=== PATIENT | female | born 1955 | race Caucasian/White ===

== ENCOUNTER 2016-11-07 12:54 | Outpatient (CLI) | payer OTHER | END 2016-11-07 12:55 | disposition home or self-care (01) | DX: I10 Essential (primary) hypertension (principal); I51.7 Cardiomegaly ==

== ENCOUNTER 2016-12-07 09:23 | Outpatient (CLI) | payer OTHER ==
[2016-12-07 12:57] VITALS: BP 138/90
--- NOTE | 2016-12-07 13:33 | CARDIAC PROCEDURE NOTE ---
DATE OF SERVICE: 12/07/2016 00:00:00 PRIMARY CARE PHYSICIAN: Dr. Mcnamara ORDERING PHYSICIAN: Cardiology at [facility], Dr. Barbara Strange PROCEDURE: Stress echocardiogram. PROCEDURE SYMPTOMS: Hypertension and chest pain. CARDIAC RISK FACTORS: Age, hypertension, and family history. PREVIOUS CARDIAC PROCEDURES: None. CLINICAL HISTORY: A 61-year-old female without known coronary artery disease. INITIAL RESTING VITAL SIGNS: Blood pressure 153/90 decreasing to 138/90 on standing, heart rate 59, h eight 63 inches, weight 130 pounds, BMI 23.0. PROCEDURE AND FINDINGS: The patient's identity and date verified. Consent signed. After resting echocardiogram images were obtained, the patient performed treadmill exercise using a Panchito protocol completing 10 minutes, 5 seconds and an estimated workload of 12.9 metabolic equivalents. Maximal bl ood pressure was 180/70 mmHg with a heart rate of 130 beats per minute or 82% of maximum predicted he art rate for age. The blood pressure response to exercise was within normal limits. The patient stopp ed because she rated exercise as 16/18, and greater than 75% target heart rate was achieved. The jad ent later reported that she could have exercised longer. The resting ECG demonstrated sinus bradycard ia with no other changes. There was less than 0.5 ST segment depression and rare PVC. Post-exercise i mages were immediately obtained on cessation of exercise. FINAL IMPRESSION 1. No ECG signs of ischemia, test incomplete, awaiting echocardiographic report. 2. Negative stress test clinically for angina. 3. Rare premature ventricular contractions. 4. Good exercise tolerance and heart rate recovery. JOB #: [id number] EXT JOB #:[id number]
== END 2016-12-07 09:24 | disposition home or self-care (01) ==
LOC: DI 09:23
PROVIDERS: ATTEND Specialist
DX: R07.89 Other chest pain (principal); I10 Essential (primary) hypertension
CPT/HCPCS: 93351

== ENCOUNTER 2020-12-07 08:47 | Outpatient (CLI) | payer MEDICARE ==
[2020-12-07 15:09] LABS: BILIRUBIN,URINE NEGATIVE (NEGATIVE); GLUCOSE, URINE (UA) NEGATIVE (NEGATIVE); KETONES,URINE (UA) NEGATIVE (NEGATIVE); LEUKOCYTE ESTERASE, URINE TRACE (NEGATIVE); NITRITE,URINE NEGATIVE (NEGATIVE); OCCULT BLOOD,URINE MODERATE (NEGATIVE); PROTEIN,URINE NEGATIVE (NEGATIVE); UROBILINOGEN,URINE 0.2 (NORMAL) E.U./dL (NORMAL)
[2020-12-07 15:14] LABS: BACTERIA,URINE Rare /HPF (None Seen); CLARITY,URINE CLEAR (CLEAR); RBC,URINE 0-5 /HPF (0-5); SQUAMOUS EPITHELIAL CELL,UR RARE Squamous (<= Few)
== END 2020-12-07 08:48 | disposition home or self-care (01) ==
LOC: LAB.S 08:47
PROVIDERS: ATTEND Physician Assistant
DX: R30.0 Dysuria (principal)
CPT/HCPCS: 81001; 87086; 87181